=== PATIENT | female | born 1930 | race Caucasian/White ===

== ENCOUNTER 2017-02-20 14:17 | Emergency (ER) | payer MEDICARE, OTHER ==
[2017-02-20 14:47] VITALS: BP 161/80
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
== END 2017-02-20 16:35 | disposition home or self-care (01) ==
LOC: JP.ED 14:17
DX: N39.0 Urinary tract infection, site not specified (principal); I10 Essential (primary) hypertension; M19.90 Unspecified osteoarthritis, unspecified site; E03.9 Hypothyroidism, unspecified; Z90.710 Acquired absence of both cervix and uterus; Z88.8 Allergy status to other drugs, medicaments and biological substances; Z91.041 Radiographic dye allergy status; Z88.0 Allergy status to penicillin; Z79.899 Other long term (current) drug therapy
CPT/HCPCS: 36415; 70450; 80053; 81001; 85025; 85651; 87086; 87088; 87186; 99283; 99284-25

== ENCOUNTER 2018-01-31 22:48 | Emergency (ER) | payer MEDICARE, OTHER | END 2018-02-01 00:24 | disposition left against medical advice (07) | LOC: JP.ED 22:48 | DX: Z53.21 Procedure and treatment not carried out due to patient leaving prior to being seen by health care provider (principal) ==

== ENCOUNTER 2018-08-11 04:15 | Emergency (ER) | payer MEDICARE, OTHER ==
--- NOTE | 2018-08-11 05:49 | EDM.PDOC ---
ED HPI GENERAL MEDICAL PROBLEM - General Chief Complaint: Back Pain or Injury Stated Complaint: FALL Time Seen by Provider: 08/11/18 05:20 Source of Information: Reports: Patient - History of Present Illness INITIAL COMMENTS - FREE TEXT/NARRATIVE: 88-year-old history of Parkinson's disease presents from shelter after recurrent falls. Patient is able to provide history but does have background dementia. She reports that she is frequently standing up and feeling dizzy. She has fallen repeatedly from this. She is not sure how often. She was sent in from the shelter today after being found on the ground. Review of the nursing of her knowledge she is apparently been increasingly agitated at night and sounds to been delirious. She is recently moved to a shelter from assisted living. Patient reports pain in her neck otherwise denies acute concerns. 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 WORKER: Reports: Other (see below) Other 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 WORKER: none - Related Data Allergies Allergy/AdvReac Type Severity Reaction Status Date / Time hydrocodone Allergy Cannot Verified 08/11/18 05:12 Remember niacin Allergy Itching Verified 08/11/18 05:12 oxycodone Allergy Cannot Verified 08/11/18 05:12 Remember penicillin G Allergy Cardiac Verified 08/11/18 05:12 Arrest red dye Allergy Cannot Verified 08/11/18 05:12 Remember sulfacetamide Allergy Cannot Verified 08/11/18 05:12 Remember lorazepam [From Ativan] AdvReac Hallucinati Verified 08/11/18 05:12 ons tape Allergy Rash Uncoded 08/11/18 05:12 Home Meds: Home Meds Levothyroxine 25 mg PO DAILY 05/28/14 [History] Carbidopa [Lodosyn] 25 mg PO QID 01/27/15 [History] Donepezil HCl [Aricept] 20 mg PO DAILY 01/27/15 [History] Brimonidine Tartrate [Brimonidine Tartrate 0.2% Ophth Soln] 1 applic EYELF BID 01/28/15 [History] Acetaminophen [Arthritis Pain Relief] 650 mg PO Q6HR 08/11/18 [History] Cholecalciferol (Vitamin D3) [Vitamin D3] 5,000 unit PO DAILY 08/11/18 [History] Cyanocobalamin (Vitamin B12) [Vitamin B13] 500 mcg PO DAILY 08/11/18 [History] DULoxetine HCl [Cymbalta] 60 mg PO DAILY 08/11/18 [History] Docusate Sodium [Colace] 100 mg PO DAILY 08/11/18 [History] Folic Acid 0.8 mg PO DAILY 08/11/18 [History] Gabapentin [Neurontin] 100 mg PO TID 08/11/18 [History] Naproxen Sodium [Aleve] 220 mg PO DAILY PRN 08/11/18 [History] Ondansetron HCl [Zofran] 4 mg PO Q4H PRN 08/11/18 [History] Propranolol HCl 10 mg PO DAILY 08/11/18 [History] QUEtiapine [SEROquel] 25 mg PO BID 08/11/18 [History] Ranitidine HCl [Ranitidine] 150 mg PO BID 08/11/18 [History] Past Medical History HEENT History: Reports: Glaucoma, Hard of Hearing, Impaired Vision, Other (See Below) 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 parkinson Psychiatric History: Reports: Dementia, Other (See Below) Other Psychiatric History: mood disorder Endocrine/Metabolic History: Reports: Hypothyroidism, Other (See Below) Other Endocrine/Metabolic History: irradiated thyroidm hypokalemia Oncologic (Cancer) History: Reports: Basal Cell Carcinoma Dermatologic History: Reports: Other (See Below) - Infectious Disease History Infectious Disease History: Reports: Chicken Pox, Measles - Past Surgical History HEENT Surgical History: Reports: Cataract Surgery GI Surgical History: Reports: Colostomy Female Surgical History: Reports: Breast Reduction, Hysterectomy Musculoskeletal Surgical History: Reports: Arthroscopic Knee Other Musculoskeletal Surgeries/Procedures:: bilateral Dermatological Surgical History: Reports: Skin Biopsy Social & Family History - Family History Family Medical History: Unobtainable - Tobacco Use Smoking Status *Q: Unknown Ever Smoked Second Hand Smoke Exposure: No - Caffeine Use Caffeine Use: Reports: Coffee - Recreational Drug Use Recreational Drug Use: No ED ROS GENERAL - Review of Systems Review Of Systems: See Below Constitutional: Reports: No Symptoms HEENT: Reports: No Symptoms Respiratory: Reports: No Symptoms Cardiovascular: Reports: No Symptoms Endocrine: Reports: No Symptoms GI/Abdominal: Reports: No Symptoms : Reports: Frequency Musculoskeletal: Reports: Neck Pain Skin: Reports: No Symptoms Neurological: Reports: Confusion Psychiatric: Reports: No Symptoms Hematologic/Lymphatic: Reports: No Symptoms Immunologic: Reports: No Symptoms ED EXAM, UPPER BACK/NECK PAIN - Physical Exam Exam: See Below Exam Limited By: No Limitations General Appearance: Alert, No Apparent Distress Head Exam: Atraumatic, Normocephalic Neck Exam: Spinous Processes Tender Nexus Criteria: Posterior, Midline Cervical Tenderness Cardiovascular/Respiratory: Regular Rate, Rhythm, Other (mild left sided chest wall tenderness, no brusing or deformity) GI/Abdominal: Soft, Non-Tender Rectal (Female) Exam: Normal Exam Extremities: Normal Inspection Neurologic: Alert, Other (oriented to place, answers questions) Skin Exam: Normal Color, Warm/Dry Course - Vital Signs Last Recorded V/S: Last Vital Signs Temp 36.3 C 08/11/18 05:51 Pulse 66 08/11/18 05:51 Resp 16 08/11/18 05:51 BP 183/72 H 08/11/18 05:51 Pulse Ox 98 08/11/18 05:51 - Orders/Labs/Meds Labs: Laboratory Tests 08/11/18 08/11/18 08/11/18 Range/Units 05:38 05:38 05:51 WBC 4.5 (4.5-11.0) K/uL RBC 4.52 (3.30-5.50) M/uL Hgb 14.0 (12.0-15.0) g/dL Hct 42.9 (36.0-48.0) % MCV 95 (80-98) fL MCH 31 (27-31) pg MCHC 33 (32-36) % Plt Count 273 (150-400) K/uL Sodium 140 (140-148) mmol/L Potassium 3.6 (3.6-5.2) mmol/L Chloride 105 (100-108) mmol/L Carbon Dioxide 27 (21-32) mmol/L Anion Gap 8.0 (5.0-14.0) mmol/L BUN 11 (7-18) mg/dL Creatinine 0.7 (0.6-1.0) mg/dL Est Cr Clr Drug Dosing 49.03 mL/min Estimated GFR (MDRD) > 60 (>60) Glucose 98 (74-106) mg/dL Calcium 9.1 (8.5-10.1) mg/dL Total Bilirubin 0.5 (0.2-1.0) mg/dL AST 9 L (15-37) U/L ALT 8 L (12-78) U/L Alkaline Phosphatase 85 (46-116) U/L Total Protein 6.5 (6.4-8.2) g/dL Albumin 3.1 L (3.4-5.0) g/dL Globulin 3.4 (2.3-3.5) g/dL Albumin/Globulin Ratio 0.9 L (1.2-2.2) Urine Color Yellow Urine Appearance Clear Urine pH 6.0 (4.5-8.0) Ur Specific [place] 1.015 (1.008-1.030) Urine Protein Negative (NEGATIVE) mg/dL Urine Glucose (UA) Normal (NEGATIVE) mg/dL Urine Ketones Negative (NEGATIVE) mg/dL Urine Occult Blood Negative (NEGATIVE) Urine Nitrite Negative (NEGATIVE) Urine Bilirubin Negative (NEGATIVE) Urine Urobilinogen Normal (NORMAL) mg/dL Ur Leukocyte Esterase Negative (NEGATIVE) Urine RBC 0-5 (0-5) Urine WBC 0-5 (0-5) Ur Epithelial Cells Rare Amorphous Sediment Rare Urine Bacteria Not seen Urine Mucus Not seen - Re-Assessments/Exams Free Text/Narrative Re-Assessment/Exam: 88-year-old with history of Parkinson's and dementia presents from shelter after frequent falls Per chart review has history of this Appears to have gotten worse over last several days No clear trigger for recent decompensation, perhaps in part due to worsening delirium and new environment On exam to clear trauma injuries, concerns of neck pain Will obtain CT head/neck, CXR, UA, and screening labs. 08/11/18 05:49 Free Text/Narrative Re-Assessment/Exam: Work up unremarkable Suspect falls due to worsening dementia, possible element of delirium as no new acute cause evident Is in shelter so proper level of care, will transfer back Needs close f/u with PCP 08/11/18 07:45 Departure - Departure Time of Disposition: 07:45 Disposition: DC/Tfer to Skilled Nursing Care 63 Clinical Impression: Rib pain on left side Fall Qualifiers: Encounter type: initial encounter Qualified Code(s): W19.XXXA - Unspecified fall, initial encounter - Discharge Information Referrals: Frankie Rodas MD [Primary Care Provider] - Forms: ED Department Discharge Additional Instructions: We did not find any abnormalities on Kristin das that would explain the increased frequency of her falls By review of nursing record it appears she is developing delirium and would suggest PCP involvement to assist with this.
--- NOTE | 2018-08-11 07:21 | CRLCT ---
INDICATION: FELL. HIT HEAD. Technique: Non-contrast head CT scan. Findings: Diffuse decreased attenuation of the periventricular white matter which likely represents small vessel ischemic disease. No other abnormal foci of altered attenuation in the brain parenchyma. No midline shift or mass effect. No hydrocephalus. No abnormal extra-axial fluid collections. Atrophic changes of the brain parenchyma. No abnormalities identified in the visualized portions of the paranasal sinuses, skull, and scalp. Impression: No evidence of acute intracranial abnormalities. Please note that all CT scans at this facility use dose modulation, iterative reconstruction, and/or weight-based dosing when appropriate to reduce radiation dose to as low as reasonably achievable. Dictated by: Juan M Michelle MD @ 08/11/2018 07:20:32 (Electronically Signed)
--- NOTE | 2018-08-11 07:38 | CRLCT ---
INDICATION: FELL. NECK PAIN. Technique: Non-contrast CT scan of the cervical spine with reformatted images obtained. Findings: Normal height and alignment of the cervical vertebral bodies. No evidence of acute fracture or dislocation. Degenerative changes of the mid cervical spine. Osteopenia. No other abnormalities identified. Impression: No evidence of acute fracture or dislocation of the cervical spine. Please note that all CT scans at this facility use dose modulation, iterative reconstruction, and/or weight-based dosing when appropriate to reduce radiation dose to as low as reasonably achievable. Dictated by: Juan M Michelle MD @ 08/11/2018 07:37:48 (Electronically Signed)
--- NOTE | 2018-08-11 07:40 | CRLCR ---
INDICATION: Fall. Chest pain. COMPARISON: Chest x-ray dated 17 May 2018. FINDINGS: A single portable chest x-ray shows a normal cardiac silhouette. Tortuous aorta. The lungs show no focal pulmonary opacities. Sharp pleural margins. No pneumothorax. Healing right-sided rib fractures. Degenerative changes of the shoulder joints. IMPRESSION: No evidence of acute pulmonary abnormalities. Dictated by Juan M Michelle MD @ 08/11/2018 7:39:28 AM Dictated by: Juan M Michelle MD @ 08/11/2018 07:39:35 (Electronically Signed)
[2018-08-11 08:11] VITALS: BP 160/65
== END 2018-08-11 09:15 ==
LOC: JP.ED 04:15
DX: R07.81 Pleurodynia (principal); G20 Parkinson's disease; I10 Essential (primary) hypertension; Z79.899 Other long term (current) drug therapy
CPT/HCPCS: 36415; 70450; 71045; 72125; 80053; 81001; 85027; 99285-25

== ENCOUNTER 2019-02-14 00:56 | Emergency (ER) | payer OTHER ==
[2019-02-14] MEDS ORDERED: traMADol 50 MG Tab PO ONE (01:12)
[2019-02-14] MEDS ORDERED: LORazepam 1 MG Tab PO ONE (01:14)
[2019-02-14 01:31] VITALS: BP 144/66; PULSE 61
--- NOTE | 2019-02-14 01:43 | EDM.PDOC ---
ED HPI GENERAL MEDICAL PROBLEM - General Chief Complaint: Skin Complaint Stated Complaint: FALL/ [facility] Time Seen by Provider: 02/14/19 01:37 Source of Information: Reports: Patient History Limitations: Reports: No Limitations - History of Present Illness INITIAL COMMENTS - FREE TEXT/NARRATIVE: pt arrived after a fall at [facility]. She ended up with a skin tear on her forearm and she is complaing of pain in her wrist. She does not have any hematoas or evidence of hitting her head at the time of the fall. There was no loss of consciouness. Onset: Today, Sudden Duration: Hour(s): Location: Reports: Upper Extremity, Right Associated Symptoms: Reports: No Other Symptoms Treatments FLIGHT ATTENDANT: Reports: Dressing(s) Right Arm Pain Score (Numeric/FACES): 7 - Related Data Allergies Allergy/AdvReac Type Severity Reaction Status Date / Time hydrocodone Allergy Cannot Verified 08/11/18 05:12 Remember niacin Allergy Itching Verified 08/11/18 05:12 oxycodone Allergy Cannot Verified 08/11/18 05:12 Remember penicillin G Allergy Cardiac Verified 08/11/18 05:12 Arrest red dye Allergy Cannot Verified 08/11/18 05:12 Remember sulfacetamide Allergy Cannot Verified 08/11/18 05:12 Remember lorazepam [From Ativan] AdvReac Hallucinati Verified 08/11/18 05:12 ons tape Allergy Rash Uncoded 08/11/18 05:12 Home Meds: Home Meds Levothyroxine 25 mg PO DAILY 05/28/14 [History] Carbidopa [Lodosyn] 25 mg PO QID 01/27/15 [History] Donepezil HCl [Aricept] 20 mg PO DAILY 01/27/15 [History] Brimonidine Tartrate [Brimonidine Tartrate 0.2% Ophth Soln] 1 applic EYELF BID 01/28/15 [History] Acetaminophen [Arthritis Pain Relief] 650 mg PO Q6HR 08/11/18 [History] Cholecalciferol (Vitamin D3) [Vitamin D3] 5,000 unit PO DAILY 08/11/18 [History] Cyanocobalamin (Vitamin B12) [Vitamin B13] 500 mcg PO DAILY 08/11/18 [History] DULoxetine HCl [Cymbalta] 60 mg PO DAILY 08/11/18 [History] Docusate Sodium [Colace] 100 mg PO DAILY 08/11/18 [History] Folic Acid 0.8 mg PO DAILY 08/11/18 [History] Gabapentin [Neurontin] 100 mg PO TID 08/11/18 [History] Naproxen Sodium [Aleve] 220 mg PO DAILY PRN 08/11/18 [History] Ondansetron HCl [Zofran] 4 mg PO Q4H PRN 08/11/18 [History] Propranolol HCl 10 mg PO DAILY 08/11/18 [History] QUEtiapine [SEROquel] 25 mg PO BID 08/11/18 [History] Ranitidine HCl [Ranitidine] 150 mg PO BID 08/11/18 [History] Past Medical History HEENT History: Reports: Glaucoma, Hard of Hearing, Impaired Vision, Other (See Below) 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 parkinson Psychiatric History: Reports: Dementia, Other (See Below) Other Psychiatric History: mood disorder Endocrine/Metabolic History: Reports: Hypothyroidism, Other (See Below) Other Endocrine/Metabolic History: irradiated thyroidm hypokalemia Oncologic (Cancer) History: Reports: Basal Cell Carcinoma Dermatologic History: Reports: Other (See Below) - Infectious Disease History Infectious Disease History: Reports: Chicken Pox, Measles - Past Surgical History HEENT Surgical History: Reports: Cataract Surgery GI Surgical History: Reports: Colostomy Female Surgical History: Reports: Breast Reduction, Hysterectomy Musculoskeletal Surgical History: Reports: Arthroscopic Knee Other Musculoskeletal Surgeries/Procedures:: bilateral Dermatological Surgical History: Reports: Skin Biopsy Social & Family History - Family History Family Medical History: Unobtainable - Tobacco Use Smoking Status *Q: Never Smoker - Caffeine Use Caffeine Use: Reports: None - Recreational Drug Use Recreational Drug Use: No ED ROS GENERAL - Review of Systems Review Of Systems: See Below Constitutional: Reports: No Symptoms HEENT: Reports: No Symptoms Respiratory: Reports: No Symptoms Cardiovascular: Reports: No Symptoms Endocrine: Reports: No Symptoms GI/Abdominal: Reports: No Symptoms : Reports: No Symptoms Musculoskeletal: Reports: Other (pt has a skin ter and pain in the rt wrist. ) Neurological: Reports: Confusion Psychiatric: Reports: Agitation, Anxiety Hematologic/Lymphatic: Reports: No Symptoms ED EXAM, SKIN/RASH Exam: See Below Text/Narrative:: pt arrived with a skin tear on the rt forearm and she is complaining of pain in the wrist. Exam Limited By: No Limitations General Appearance: Alert, Anxious, Moderate Distress Ears: Normal TMs Nose: Normal Inspection Throat/Mouth: Normal Inspection Head: Atraumatic Neck: Normal Inspection Respiratory/Chest: No Respiratory Distress Cardiovascular: Regular Rate, Rhythm GI/Abdominal: Soft Rectal (Female) Exam: Deferred Back Exam: Normal Inspection Extremities: Other (pt has mild tenderness in the rt forearm area. She has a skin tear about 3 inches in length) Neurological: Alert, Confused Course - Vital Signs Last Recorded V/S: Last Vital Signs Temp 36.2 C 02/14/19 01:27 Pulse 61 02/14/19 01:27 Resp 16 02/14/19 01:27 BP 144/66 H 02/14/19 01:27 Pulse Ox 98 02/14/19 01:27 - Orders/Labs/Meds Meds: Medications Discontinued Medications Generic Name Dose Route Start Last Admin Trade Name Manjit PRN Reason Stop Dose Admin Lorazepam 1 mg 02/14/19 01:14 02/14/19 01:25 Ativan PO 02/14/19 01:15 Not Given ONETIME ONE Tramadol HCl 50 mg 02/14/19 01:12 02/14/19 01:24 Ultram PO 02/14/19 01:13 50 mg ONETIME ONE Administration - Re-Assessments/Exams Free Text/Narrative Re-Assessment/Exam: 02/14/19 01:58 xrays reveal no fractures. --of the wrist or forearm. the skin tears were partialy glued and then steri striped. The wound will be wrapped with kirlex. 02/14/19 02:18 Departure - Departure Time of Disposition: 02:19 Disposition: Home, Self-Care 01 Condition: Fair Clinical Impression: Skin tear, Contusion of right arm - Discharge Information Referrals: PCP,None [Primary Care Provider] - Forms: ED Department Discharge Care Plan Goals: keep dry until healed, tramodol 10 mg bid for pain as needed for the next 4 days.
--- NOTE | 2019-02-14 02:03 | CRLCR ---
Indication: Arm pain, skin tear. Technique: Two views Comparison: None Findings: Bones: Alignment is normal. No fractures or bone lesions. Joint spaces: Unremarkable. Soft tissues: Dorsal soft tissue swelling and small subcutaneous air consistent with the history of skin laceration. Dictated by Rohit Desai MD @ Feb 14 2019 2:00AM Signed by Dr. Rohit Desai @ Feb 14 2019 2:01AM
== END 2019-02-14 02:53 | disposition home or self-care (01) ==
LOC: JP.ED 00:56
DX: S51.811A Laceration without foreign body of right forearm, initial encounter (principal); M25.531 Pain in right wrist; I10 Essential (primary) hypertension; G20 Parkinson's disease; F02.80 Dementia in other diseases classified elsewhere, unspecified severity, without behavioral disturbance, psychotic disturbance, mood disturbance, and anxiety; E03.9 Hypothyroidism, unspecified; Z98.49 Cataract extraction status, unspecified eye; Z90.710 Acquired absence of both cervix and uterus; Z91.018 Allergy to other foods; Z91.09 Other allergy status, other than to drugs and biological substances; Z88.8 Allergy status to other drugs, medicaments and biological substances; Z79.899 Other long term (current) drug therapy; Z88.6 Allergy status to analgesic agent; Z88.0 Allergy status to penicillin
CPT/HCPCS: 12004; 73090; 99283; A9270